=== PATIENT | male | born 1990 | race Caucasian/White ===

== ENCOUNTER 2021-01-25 09:30 | Day surgery (SDC) | payer OTHER ==
[~2021-01-25] VITALS: Ht 177.8 cm; Wt 79.4 kg
--- NOTE | ~2021-01-25 | OP ---
PATIENT NAME: SEBLE MEYER MEDICAL RECORD: [id number] :90 LOCATION:D.OPS ADMISSION DATE: SURGEON: MICHELLE ALVAREZ MD DATE OF OPERATION: 01/25/2021 REFERRING PHYSICIAN: Guerline Purvis MD PREOPERATIVE DIAGNOSES: End-stage renal disease and dependence on hemodialysis and uncontrolled insulin-dependent diabetes mellitus. POSTOPERATIVE DIAGNOSES: End-stage renal disease and dependence on hemodialysis and uncontrolled insulin-dependent diabetes mellitus. OPERATION PERFORMED: One stage creation of left arm brachial artery to translocated basilic vein arteriovenous fistula. SURGEON: Michelle Alvarez MD ANESTHESIA: Regional nerve block and IV sedation by Dr. Yost. PREOPERATIVE NOTE: This 30-year-old diabetic white male patient from [place] has begun dialysis in [place] with a catheter. Dr. 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 At any rate, he needs long-term access and Dr. Nunes referred him to me for that. He has had vein mapping and is noted to have very small veins in the right arm, small veins generally on the left, but the basilic vein is large and dominant. Probably, he will be able to have a translocated basilic vein fistula. Under regional anesthesia and with IV sedation as needed monitoring by Dr. Yost, the patient was placed in supine position and the arm and axilla prepped and draped in a sterile manner. I applied nitroglycerin paste and used a Jerry drain as a proximal venous tourniquet. A duplex ultrasound examination confirmed the satisfactory size and superficial location of the basilic vein in the upper arm. Note, the patient is extremely thin, so there was not a great depth of adipose tissue covering the basilic. In fact, it was visible in the lower half of the arm. I made a long incision over the vein and dissected it from surrounding structures and divided tributaries and perforating veins between ligatures of Vicryl and/or Hemoclips. Only one required a [id number] 6-0 Prolene suture on the wall of the vein. When freed down to the antecubital space there, I entered an area of fibrosis, probably from prior access and at that point I ligated the vein and divided and bevelled it. It was then flushed with heparinized saline and treated with topical papaverine. I decided where the arterial anastomosis would be conducted and expose the brachial artery. They are controlled with Silastic loops. I made a very superficial subcutaneous tunnel a few centimeters anterior to the primary incision and placed the vein within that tunnel with care not to twist or kink it and then flushed it again with heparinized saline. The artery was occluded and an arteriotomy was made and the artery flushed proximally and distally with heparinized saline and the end of the vein was then anastomosed to the side of the artery with running 7-0 Prolene. When that was completed and the occluding OPERATIVE REPORT [id number] SEBLE MEYER loops and clamps were released, excellent flow developed within the fistula manifested by pulsation with a strong palpable thrill and a soft compressible collapsible nature to the fistula consistent with low proximal venous resistance. The wound was irrigated several times with saline and infiltrated with 1% lidocaine with epinephrine and 0.25% Marcaine. The wound was closed without the use of the drain with interrupted inverted 3-0 Vicryl and running intracuticular 4-0 Stratafix. The incision was sealed with glue. The fistula was examined with Doppler and a monophasic pulsatile continuous flow signal was present within the fistula and also hyperemic flow was present in the brachial artery proximal and distal to the anastomosis. There was excellent multiphasic pulsatile flow in the radial artery and ulnar artery at the wrist. The incision was dressed with Maxorb AG, Tegaderm, Cavilon skin prep. There was still some oozing, especially from the distal end of the incision and so I personally carefully applied a mild compression wrap with a Kerlix gauze roll and Coban. The patient was awakened and in stable condition taken to the recovery room. Blood loss during the operation was minimal, about 5 mL, none was replaced. Sponges, instruments, and needles were accounted for. No drain was used and no surgical specimen was submitted for histopathology. PLAN: The patient will be discharged to home today. He is to keep his arm in a sling until tomorrow and then remove it and resume normal activities assuming his nerve block has worn off by then. He will continue his same medications and diet and his same dialysis schedule. I will have him come back to see me next week and I have left a prescription for 10 tablets of Gonzales 5/325, he can take 1 or 2 p.o. every 6 hours p.r.n. pain, no refills. I believe he has hydrocodone already at home which he takes on a chronic basis. The patient's blood sugar this morning on presentation was just under 550 and his potassium was about 2.8. It took some time to optimize his potassium and get his blood sugar down with IV insulin into the 300s before surgery. Blood sugar was in the 100s last in the operating room and will be checked again before he is discharged from the outpatient department. TRANSINT:[id number] Voice Confirmation ID: [id number] DOCUMENT ID: [id number] MICHELLE ALVAREZ MD CC: GUERLINE PURVIS MD [id number] DICTATION DATE: 01/25/21 1549 [facility] SPECIALIST: 01/26/21 0126 [facility] 01/25/21 [id number] [place] [id number]
[2021-01-25 09:53] LABS: BASOPHILS 0.8 % (0-2); EOSINOPHILS 1.7 % (0-7); HEMATOCRIT 29.7 % (42.0-54.0); HEMOGLOBIN 9.5 g/dL (13.5-17.5); IMMATURE GRANULOCYTES 0.2 % (0-5); LYMPHOCYTE ABS# 0.89 10x3/uL (1.32-3.57); MCV 90.5 fL (80.0-100.0); MEAN PLATELET VOLUME 8.3 fL (7.4-10.4); MONOCYTES 8.4 % (2-11); NEUTROPHIL ABS# 3.77 10x3/uL (1.78-5.38); NEUTROPHILS 71.9 % (40-80); PLATELET COUNT 340 10x3/uL (130-400); RBC 3.28 10x6/uL (4.20-6.10); RDW 14.7 % (11.5-14.5); WBC 5.2 10x3/uL (4.8-10.8)
[2021-01-25 10:07] LABS: INR 0.91 (0.85-1.17); PROTIME 11.3 SECONDS (11.6-15.0)
[2021-01-25 10:09] LABS: ANION GAP 13.4 mmol/L (8-16); CALCIUM 7.4 mg/dL (8.5-10.1); CARBON DIOXIDE 27.4 mmol/L (21.0-32.0); CREATININE - SERUM 3.1 mg/dL (0.6-1.3)
[2021-01-25 10:17] LABS: POTASSIUM - SERUM 2.8 mmol/L (3.5-5.1)
[2021-01-25] MEDS ORDERED: HYDRALAZINE HC100 MG PO (10:40)
[2021-01-25] MEDS ORDERED: COZAAR100 MG PO (10:40)
[2021-01-25] MEDS ORDERED: CLONIDINE HCL0.2 MG PO (10:40)
[2021-01-25] MEDS ORDERED: PROTONIX40 MG PO (10:41)
[2021-01-25] MEDS ORDERED: REMERON15 MG PO (10:41)
[2021-01-25] MEDS ORDERED: TOPROL XL50 MG PO (10:41)
[2021-01-25] MEDS ORDERED: BUMETANIDE0.5 MG PO (10:42)
[2021-01-25] MEDS ORDERED: HYDROCODONE-AC1 EAC2 (10:42)
[2021-01-25] MEDS ORDERED: HUMALOG 30100 UNITS/ SC (10:43)
[2021-01-25] MEDS ORDERED: LANTUS INS100 UNITS/ SC (10:43)
--- NOTE | 2021-01-25 10:50 | NUR ---
CONSULTED JENNIFER AMIN REGARDING PT LABS, NEW ORDERS RECIEVED, SEE ORDERS.
[2021-01-25] MEDS ORDERED: ULTRAM50 MG PO (11:04)
[2021-01-25 11:10] VITALS: BP 186/109; Ht 177.8 cm; Wt 79.4 kg
--- NOTE | 2021-01-25 12:16 | NUR ---
DR. RAMOS VIEWED TODAYS EKG AND PREVIOUS EKG. SAYS HE IS GOOD TO PROCEED FROM A CARDIAC STANDPOINT. THE CHANGES FROM EKGS WERE JUST A DIFFERENT LEAD PLACEMENT
[2021-01-25 12:52] LABS: ANION GAP 14.8 mmol/L (8-16); CALCIUM 7.6 mg/dL (8.5-10.1); CARBON DIOXIDE 23.3 mmol/L (21.0-32.0); CREATININE - SERUM 3.3 mg/dL (0.6-1.3)
[2021-01-25 12:59] LABS: POTASSIUM - SERUM 2.1 mmol/L (3.5-5.1)
--- NOTE | 2021-01-25 16:44 | NUR ---
1640 LAB CALLED FOR THE 2ND TIME TO COME DRAW PT.
[2021-01-25 17:05] LABS: ANION GAP 12.6 mmol/L (8-16); CALCIUM 7.4 mg/dL (8.5-10.1); CARBON DIOXIDE 27.4 mmol/L (21.0-32.0); CREATININE - SERUM 3.1 mg/dL (0.6-1.3)
== END 2021-01-25 17:50 | disposition home or self-care (01) ==
LOC: D.OPS 09:30
PROVIDERS: Internal Medicine Nephrology; Surgery; ATTEND Internal Medicine
DX: E11.22 Type 2 diabetes mellitus with diabetic chronic kidney disease (principal); E11.65 Type 2 diabetes mellitus with hyperglycemia; N18.6 End stage renal disease; Z99.2 Dependence on renal dialysis; Z79.4 Long term (current) use of insulin; I10 Essential (primary) hypertension